=== PATIENT | male | born 1975 | race Hispanic/Latino ===

== ENCOUNTER 2016-12-12 13:00 | Emergency (ER) | payer BC ==
[2016-12-12 13:00] VITALS: BMI 32.6
[2016-12-12 13:12] VITALS: TEMP 97.9; O2SAT 97
[2016-12-12 13:22] VITALS: RESP 18
--- NOTE | 2016-12-12 14:30 | RAD ---
PROCEDURE: Right Knee Radiographs. HISTORY: fall COMPARISON: None. FINDINGS: BONES: Normal. No fracture. JOINTS: Normal. No osteoarthritis. JOINT EFFUSION: None. OTHER FINDINGS: Multiple surgical pins and wires are seen in the patella. There is no visible fracture line IMPRESSION: No acute findings
--- NOTE | 2016-12-12 14:54 | ED PDOC ---
Arrival/HPI - General Chief Complaint: Lower Extremity Problem/Injury Time Seen by Provider: 12/12/16 13:26 Historian: Patient - History of Present Illness Narrative History of Present Illness (Text): 12/12/16 Kike Srivastava is a 41 year old male, whose past medical history include ORIF, who presents to the emergency department complaining of right knee pain since yesterday after a mechanical fall. Patient reports he fell from the back of truck landing on his right knee, which he reports having past surgical history of ORIF after open Fx of the patella 1.5 yrs ago. Patient notes his right knee is very stiff and worse with movement. Patient denies hitting his head or loss of consciousness. Patient denies fever, shortness of breath, chest pain, headache, or other complaints. Patient also c/o painful rash of the pubic area for 1 week. 12/12/16 16:41 Time/Duration: 24 hours Symptom Onset: Sudden Symptom Course: Unchanged Activities at Onset: Light Modifying Factors (Text): very stiff and worse with movement Context: Other (fell off back of truck) Past Medical History - Provider Review Nursing Documentation Reviewed: Yes - Past History Past History: No Previous - Infectious Disease Hx of Infectious Diseases: None - Tetanus Immunization Tetanus Immunization: Unknown - Reproductive Currently : No - Cardiac Hx Hypertension: Yes - Pulmonary Hx Respiratory Disorders: No - Neurological Hx Seizures: Yes - HEENT Hx HEENT Disorder: No - Renal Hx Renal Disorder: No - Endocrine/Metabolic Hx Hypothyroidism: Yes - Hematological/Oncological Hx Blood Disorders: No - Integumentary Hx Dermatological Disorder: No - Musculoskeletal/Rheumatological Other/Comment: R KNEE PAIN - Gastrointestinal Hx Gastrointestinal Disorders: No - Genitourinary/Gynecological Hx Genitourinary Disorders: No - Psychiatric Hx Psychophysiologic Disorder: No Hx Substance Use: Yes - Surgical History Other/Comment: Hernia surgery, R KNEE - Anesthesia Hx Anesthesia: Yes - Suicidal Assessment Feels Threatened In Home Enviroment: No Family/Social History - Physician Review Nursing Documentation Reviewed: Yes Family/Social History: Unknown Family HX Smoking Status: Never Smoked Hx Alcohol Use: Yes Hx Substance Use: Yes Substance used: marijuana Allergies/Home Meds Allergies/Adverse Reactions: Allergies Penicillins Allergy (Verified 12/12/16 13:06) RASH Home Medications: Home Meds Medication Instructions Recorded Confirmed levETIRAcetam [Keppra] 500 mg PO BID 08/07/16 09/06/17 Review of Systems - Review of Systems Constitutional: absent: Fevers Respiratory: absent: SOB Cardiovascular: absent: Chest Pain Gastrointestinal: absent: Abdominal Pain, Nausea, Vomiting Musculoskeletal: Other (right knee pain) Skin: Rash Neurological: absent: Headache Physical Exam Vital Signs Temp Pulse Resp BP Pulse Ox 12/12/16 14:59 65 18 148/91 H 97 12/12/16 13:22 97.9 F 66 18 157/106 H 97 12/12/16 13:07 97.9 F 66 16 157/106 H 97 Temperature: Afebrile Blood Pressure: Hypertensive Pulse: Regular Respiratory Rate: Normal Appearance: Positive for: Well-Appearing, Non-Toxic, Comfortable Pain Distress: None Mental Status: Positive for: Alert and Oriented X 3 - Systems Exam Head: Present: Atraumatic, Normocephalic Pupils: Present: PERRL Extroacular Muscles: Present: EOMI Conjunctiva: Present: Normal Mouth: Present: Moist Mucous Membranes Neck: Present: Normal Range of Motion Respiratory/Chest: Present: Clear to Auscultation, Good Air Exchange. No: Respiratory Distress, Accessory Muscle Use Cardiovascular: Present: Regular Rate and Rhythm, Normal S1, S2. No: Murmurs Abdomen: Present: Normal Bowel Sounds. No: Tenderness, Distention, Peritoneal Signs Back: Present: Normal Inspection Upper Extremity: Present: Normal Inspection. No: Cyanosis, Edema Lower Extremity: Present: Tenderness (tender to palpation ), Swelling (right knee), Other (difficulty with flexion). No: Edema Neurological: Present: GCS=15, CN II-XII Intact, Speech Normal Skin: Present: Warm, Dry, Rashes (mild folliculitis of the right pubic area, no open sores.), Normal Color Psychiatric: Present: Alert, Oriented x 3, Normal Insight, Normal Concentration Medical Decision Making ED Course and Treatment: 12/12/16 Impression: 41 year old male with right swollen and tender knee after mechanical fall. Plan: -- Motrin -- X-ray right knee -- Reassess and disposition Progress Notes: 12/12/2016 14:30 Right Knee X-ray: Creator : Leoncio Green MD FINDINGS: BONES: Normal. No fracture. JOINTS: Normal. No osteoarthritis. JOINT EFFUSION: None. OTHER FINDINGS: Multiple surgical pins and wires are seen in the patella. There is no visible fracture line IMPRESSION: No acute findings - RAD Interpretation Radiology Orders: 12/12/16 13:26 KNEE W PATELLA RIGHT 3 VIEW [RAD] Stat Couture Dressmaker: Radiologist - Medication Orders Current Medication Orders: Discontinued Medications Ibuprofen (Motrin Tab) 600 mg PO STAT STA Stop: 12/12/16 13:28 Last Admin: 12/12/16 13:37 Dose: 600 mg - Scribe Statement The provider has reviewed the documentation as recorded by the Scribe 12/12/2016 Andreea Lorenz Provider Scribe Attestation: All medical record entries made by the Scribe were at my direction and personally dictated by me. I have reviewed the chart and agree that the record accurately reflects my personal performance of the history, physical exam, medical decision making, and the department course for this patient. I have also personally directed, reviewed, and agree with the discharge instructions and disposition. Disposition/Present on Arrival - Present on Arrival Any Indicators Present on Arrival: No History of DVT/PE: No History of Uncontrolled Diabetes: No Urinary Catheter: No History of Decub. Ulcer: No History Surgical Site Infection Following: None - Disposition Have Diagnosis and Disposition been Completed?: Yes Diagnosis: Knee contusion, Folliculitis Disposition: HOME/ ROUTINE Disposition Time: 15:06 Patient Plan: Discharge Condition: STABLE Discharge Instructions (ExitCare): Knee Sprain (ED), Folliculitis (ED), Knee Immobilizer (ED) Print Language: LITHUANIAN Additional Instructions: Follow up with PMD, Orthopedist and Textile Conversion Manager within -12 dya.s Return to Ed if feel worse. Prescriptions: Mupirocin 2% Ointment [Bactroban Ointment] 1 appl TP BID #1 tube Ibuprofen [Motrin Tab] 600 mg PO Q8 #30 tab Referrals: Adan Pimentel III, MD [Medical Doctor] - Follow up with primary Forms: zuuka! (Turkmen)
[2016-12-12 14:59] VITALS: BP 148/91; PULSE 65
== END 2016-12-12 15:18 | disposition home or self-care (01) ==
LOC: ED 13:00
DX: S80.01XA Contusion of right knee, initial encounter (principal); W17.89XA Other fall from one level to another, initial encounter; L73.9 Follicular disorder, unspecified